=== PATIENT | male | born 2000 | race Caucasian/White ===

== ENCOUNTER 2024-07-04 09:55 | Outpatient (CLI) | payer BC, SELFPAY | END 2024-07-04 09:56 | disposition home or self-care (01) | PROVIDERS: PCP Physician Assistant Medical; Visit Provider Physician Assistant Medical | DX: F41.9 Anxiety disorder, unspecified (principal); F51.01 Primary insomnia; Z13.6 Encounter for screening for cardiovascular disorders | CPT/HCPCS: 80053; 80061; 84443 ==

== ENCOUNTER 2024-11-22 09:30 | Outpatient (CLI) | payer BC, SELFPAY | END 2024-11-22 09:31 | disposition home or self-care (01) | LOC: NFLDREF 12-05 22:09 | PROVIDERS: PCP Physician Assistant Medical; Referring Provider Physician Assistant Medical; Visit Provider Physician Assistant Medical | DX: Z01.84 Encounter for antibody response examination (principal) | CPT/HCPCS: 86706 ==

== ENCOUNTER 2025-01-16 08:35 | Outpatient (CLI) | payer OTHER, SELFPAY | END 2025-01-16 08:36 | disposition home or self-care (01) | LOC: NFLDREF 01-18 07:27 | PROVIDERS: PCP Physician Assistant Medical; Referring Provider Physician Assistant Medical; Visit Provider Physician Assistant Medical | DX: Z01.84 Encounter for antibody response examination (principal) | CPT/HCPCS: 86706 ==